=== PATIENT | female | born 1995 | race African-American/Black ===

== ENCOUNTER 2017-09-27 10:48 | Emergency (ER) | payer MEDICAID ==
[~2017-09-27] VITALS: Ht 170.2 cm; Wt 66.2 kg
[2017-09-27 11:07] VITALS: BP 122/60
[2017-09-27 11:50] LABS: Urine Bacteria NONE SEEN /hpf (None Seen); Urine Blood Negative /uL (Negative); Urine Mucus FEW (None Seen); Urine Specific Gravity 1.017 (1.001-1.035); Urine WBC 3 /hpf (0 - 5)
[2017-09-27 11:55] LABS: Basophils # (auto) 0.1 uL; Basophils % (auto) 0.5 % (0.0-2.0); Eosinophils # (auto) 0.1 uL; Eosinophils % (auto) 0.6 % (0.0-7.0); Hematocrit 34.3 % (36.0-46.0); Hemoglobin 11.5 g/dL (12.2-16.2); Lymphocytes # (auto) 1.5 uL; Lymphocytes % (auto) 14.7 % (10.0-50.0); Mean Corpuscular Hemoglobin 32.2 pg (28.0-32.0); Mean Corpuscular Hgb Conc. 33.5 g/dL (32.0-36.0); Mean Corpuscular Volume 96.1 fL (80.0-100.0); Monocytes # (auto) 0.5 uL; Monocytes % (auto) 5.3 % (0.0-12.0); Neutrophils # (auto) 7.8 uL; Neutrophils % (auto) 78.9 % (37.0-80.0); Nucleated Red Blood Cells % 0.1 %; Platelet Count (auto) 232 10^3/uL (140-450); Red Blood Cells 3.57 10^6/uL (4.0-5.20); Red Cell Distribution Width 13.5 % (11.8-14.3); White Blood Cell 9.9 10^3/uL (4.4-10.8)
[2017-09-27 12:39] LABS: Calcium 9.1 mg/dL (8.5-10.1); Potassium 4.1 mmol/L (3.5-5.1)
[2017-09-27 12:43] LABS: BUN/Creatinine Ratio 9.6
[2017-09-27 12:45] LABS: Bilirubin, Total 0.4 mg/dL (0.2-1.0); Total Protein 7.2 g/dL (6.4-8.2)
== END 2017-09-27 14:37 | disposition left against medical advice (07) ==
LOC: ER 10:48
DX: R10.13 Epigastric pain (principal); Z53.21 Procedure and treatment not carried out due to patient leaving prior to being seen by health care provider
CPT/HCPCS: 36415; 80053; 81001; 83690; 84702; 85025

== ENCOUNTER 2023-11-30 16:40 | Emergency (ER) | payer MEDICAID ==
[~2023-11-30] VITALS: Ht 170.2 cm; Wt 65.9 kg
[2023-11-30 17:41] VITALS: BP 133/88; PULSE 79; RESP 16; O2SAT 98
[2023-11-30 17:51] VITALS: TEMP 98.9
[2023-11-30] MEDS: cefTRIAXone SOD 1,000 MG VL IM ONE (17:51)
[2023-11-30] MEDS: ACETAMINOPHEN 500 MG TAB PO ONE (17:51)
== END 2023-11-30 18:11 | disposition home or self-care (01) ==
LOC: ER 16:40
DX: K04.7 Periapical abscess without sinus (principal)
CPT/HCPCS: 96372; 99283; J0696

== ENCOUNTER 2025-03-30 20:29 | Emergency (ER) | payer MEDICAID ==
[~2025-03-30] VITALS: Ht 170.2 cm; Wt 67.1 kg
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
[2025-03-31] MEDS: KETOROLAC TROMETH 60MG/2ML VIAL IM ONE (00:10)
--- NOTE | 2025-03-31 00:13 | DVH ---
XY FACIAL BONES COMPLETE INDICATION: sinus pain TECHNICAL DATA: Frontal, vertex, Lynette's, Garcia and lateral views were obtained of the skull. COMPARISON: None FINDINGS: No fracture or focal bone abnormality is demonstrated. The paranasal sinuses appear well aerated with no filling defect. The mastoid air cells are clear. IMPRESSION: 1. Normal radiographs of the skull.
[2025-03-31] MEDS: IBUPROFEN 800 MG TAB PO ONE (00:17)
[2025-03-31 00:18] VITALS: BP 123/76; PULSE 79; RESP 16; TEMP 98.5; O2SAT 99
[2025-03-31] MEDS ORDERED: IBUP-1456 PO (00:27)
[2025-03-31] MEDS ORDERED: TIZA10TA PO (00:27)
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
== END 2025-03-31 00:34 | disposition home or self-care (01) ==
LOC: ER 20:29
DX: S13.4XXA Sprain of ligaments of cervical spine, initial encounter (principal); S46.912A Strain of unspecified muscle, fascia and tendon at shoulder and upper arm level, left arm, initial encounter; S40.022A Contusion of left upper arm, initial encounter; S00.33XA Contusion of nose, initial encounter; Y08.89XA Assault by other specified means, initial encounter; Y93.89 Activity, other specified; Y92.89 Other specified places as the place of occurrence of the external cause; Y99.8 Other external cause status
CPT/HCPCS: 72040; 73030; 73060